=== PATIENT | female | born 1945 ===

== ENCOUNTER 2019-07-05 08:55 | Day surgery (SDC) | payer MEDICARE ==
[2019-07-05] MEDS ORDERED: LIDOcaine 1%/PF 5ML 10 MG/ML VIAL ONE ×2 (09:45→10:18)
== END 2019-07-05 10:36 | disposition home or self-care (01) ==
LOC: WOUND CARE 08:55
PROVIDERS: ATTEND Surgery
DX: C44.629 Squamous cell carcinoma of skin of left upper limb, including shoulder (principal); I10 Essential (primary) hypertension; E78.5 Hyperlipidemia, unspecified; H40.9 Unspecified glaucoma; Z85.828 Personal history of other malignant neoplasm of skin; Z87.891 Personal history of nicotine dependence
CPT/HCPCS: 11403; 11603; 88305; A4663

== ENCOUNTER 2019-07-15 08:25 | Outpatient (CLI) | payer MEDICARE ==
[2019-07-15] MEDS ORDERED: LIDOcaine 2% 5ml jelly ONE (09:37)
== END 2019-07-15 10:20 | disposition home or self-care (01) ==
LOC: WOUND CARE 08:25 → EDSTATUS 08:30 → WOUND CARE 10:20
PROVIDERS: ATTEND Surgery
DX: C44.629 Squamous cell carcinoma of skin of left upper limb, including shoulder (principal); I10 Essential (primary) hypertension; E78.5 Hyperlipidemia, unspecified; H40.9 Unspecified glaucoma; Z85.828 Personal history of other malignant neoplasm of skin; Z87.891 Personal history of nicotine dependence
CPT/HCPCS: A4663; G0463